=== PATIENT | female | born 1950 | race Caucasian/White ===

== ENCOUNTER 2017-08-30 15:55 | Emergency (ER) | payer BC, OTHER ==
[2017-08-30 16:50] LABS: Absolute Lymphocytes (CBC) 3.1 K/uL (0.7-4.9); Absolute Monocytes 0.5 K/uL (0.1-1.3); Absolute Neutrophil 3.6 K/uL (1.8-8.0); Basophils % 1.7 % (0-1.3); Eosinophils % 1.7 % (0-4.4); Hematocrit 45.2 % (36.0-45.0); Lymphocytes % 41.6 % (15.3-44.8); MCH 29.9 pg (27.0-35.0); MCV 90.9 fL (80-100); MPV 7.8 fL (7.6-11.3); Monocytes % 6.2 % (3.3-12.3); RBC Red Blood Cell Count 4.97 M/uL (3.86-4.86)
[2017-08-30 16:54] LABS: Protime INR 0.99
[2017-08-30 16:54] LABS: Urine Blood NEGATIVE (NEG); Urine Glucose NEGATIVE (NEG); Urine Protein NEGATIVE (NEG); Urine pH 6.5 (5.0-7.0)
--- NOTE | 2017-08-30 17:00 | RAD REPORT ---
EXAM DESCRIPTION: Dylan Single View08/30/2017 4:51 pm CLINICAL HISTORY: Chest pain COMPARISON: 2011 FINDINGS: The lungs appear clear of acute infiltrate. The heart is normal size IMPRESSION: No acute abnormalities displayed
[2017-08-30 17:04] LABS: Potassium 3.9 mEq/L (3.6-5.0)
[2017-08-30 17:10] LABS: Albumin 4.2 g/dL (3.2-5.5); Bilirubin Direct 0.1 mg/dL (0-0.2); Bilirubin Total 0.4 mg/dL (0.3-1.2); Protein, Total 7.3 g/dL (6.0-8.3)
[2017-08-30 17:14] LABS: CKMB Creatine Kinase MB 1.2 ng/ml (0.3-4.0)
[2017-08-30] MEDS ORDERED: ASPIRIN 81 MG CHEWABLE TABLET ONE (17:21)
--- NOTE | 2017-08-30 20:51 | ER ---
Nurse's Notes [facility] Name: Princess Maya Age: 67 yrs Sex: Female : 1950 Arrival Date: 08/30/2017 Time: 15:57 Bed 6 Private MD: Out, [facility] Diagnosis: Chest pain, unspecified Presentation: 08/30 15:57 Presenting complaint: Patient states: continuous right sided chest tightness/heaviness sv with radiation to left jaw and right arm started about 15 minutes ago, SOB, weakness. Denies n/v. 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 Transition of care: patient was not received from another setting of care. Onset of symptoms was August 30, 2017 at 15:45. Care prior to arrival: None. 15:57 Method Of Arrival: Wheelchair sv 15:57 Acuity: JEREMIE 2 sv 16:15 Risk Assessment: Do you want to hurt yourself or someone else? Patient reports no hb desire to harm self or others. Initial Sepsis Screen: Does the patient meet any 2 criteria? No. Patient's initial sepsis screen is negative. Does the patient have a suspected source of infection? No. Patient's initial sepsis screen is negative. Historical: - Allergies: 16:02 PENICILLINS; sv 16:02 Morphine; sv - PMHx: 16:02 None; sv - PSHx: 16:02 Hysterectomy; sv - Immunization history:: Adult Immunizations up to date. - Social history:: Smoking status: Patient/guardian denies using tobacco. - Ebola Screening: : No symptoms or risks identified at this time. Screenin:15 Abuse screen: Denies threats or abuse. Denies injuries from another. Nutritional hb screening: No deficits noted. Tuberculosis screening: No symptoms or risk factors identified. Fall Risk None identified. Assessment: 16:15 General: Appears in no apparent distress. uncomfortable, Behavior is calm, cooperative. hb Pain: Complains of pain in anterior aspect of right upper chest and mid-sternal area Pain radiates to back Pain began suddenly, 4 hours ago. Neuro: Level of Consciousness is awake, alert, obeys commands, Oriented to person, place, time, situation. Cardiovascular: Heart tones S1 S2 present Capillary refill < 3 seconds Patient's skin is warm and dry. Respiratory: Airway is patent Trachea midline Respiratory effort is even, unlabored, Respiratory pattern is regular, symmetrical, Breath sounds are clear bilaterally. GI: No signs and/or symptoms were reported involving the gastrointestinal system. : No signs and/or symptoms were reported regarding the genitourinary system. EENT: No signs and/or symptoms were reported regarding the EENT system. Derm: Skin is intact, is healthy with good turgor, Skin is pink, warm \T\ dry. Musculoskeletal: No signs and/or symptoms reported regarding the musculoskeletal system. 17:00 Reassessment: Patient appears in no apparent distress at this time. No changes from hb previously documented assessment. Patient and/or family updated on plan of care and expected duration. Pain level reassessed. Patient is alert, oriented x 3, equal unlabored respirations, skin warm/dry/pink. 18:00 Reassessment: Patient appears in no apparent distress at this time. Patient and/or hb family updated on plan of care and expected duration. Pain level reassessed. Patient is alert, oriented x 3, equal unlabored respirations, skin warm/dry/pink. Patient denies pain at this time. Patient states feeling better. Patient states symptoms have improved. 19:47 Reassessment: Patient appears in no apparent distress at this time. No changes from ak1 previously documented assessment. Vital Signs: 16:02 Weight 74.84 kg; Height 5 ft. 4 in. (162.56 cm); sv 16:11 BP 126 / 62; Pulse 73; Resp 20; Pulse Ox 99% ; sv 17:00 BP 100 / 45; Pulse 71; Resp 14; Pulse Ox 96% on R/A; Pain 0/10; hb 18:00 BP 93 / 56; Pulse 73; Resp 16; Pulse Ox 100% on R/A; Pain 0/10; hb 19:48 BP 107 / 65; Pulse 68; Resp 18; Pulse Ox 99% on R/A; ak1 16:02 Body Mass Index 28.32 (74.84 kg, 162.56 cm) sv ED Course: 15:56 Patient placed in an exam room. sv 15:57 Patient arrived in ED. sb2 15:58 Out, [facility] is Private Physician. sb2 16:01 Triage completed. sv 16:10 Patient has correct armband on for positive identification. Placed in gown. Bed in low hb position. Call light in reach. Side rails up X 1. monitor and storage bin tender on. Pulse ox on. NIBP on. 16:11 EKG done, by ED staff, reviewed by James Del Rio MD. sv 16:11 Arm band placed on right wrist. sv 16:15 Inserted saline lock: 20 gauge in right antecubital area, using aseptic technique. hb Blood collected. 16:15 Patient maintains SpO2 saturation greater than 95% on room air. hb 16:17 Joaquin Sorensen PA is PHCP. cp 16:17 James Del Rio MD is Attending Physician. cp 16:49 X-ray completed. Portable x-ray completed in exam room. Patient tolerated procedure mh1 well. 16:50 XRAY Chest (1 view) In Process Unspecified. EDMS 17:19 Muriel Gill, RN is Primary Nurse. hb 20:49 Calixto Noel MD is Referral Physician. cp 21:03 No provider procedures requiring assistance completed. IV discontinued, intact, ak1 bleeding controlled, No redness/swelling at site. Pressure dressing applied. Administered Medications: 16:27 CANCELLED (Physician Discretion): Aspirin Chewable Tablet 324 mg PO once; 81 mg tablets cp x 4 17:00 Drug: Aspirin Chewable Tablet 162 mg Route: PO; hb 17:45 Follow up: Response: No adverse reaction hb Outcome: 20:51 Discharge ordered by MD. cp 21:03 Discharged to home ambulatory, with family. ak1 21:03 Condition: good 21:03 Discharge instructions given to patient, family, Instructed on discharge instructions, follow up and referral plans. Demonstrated understanding of instructions, follow-up care. 21:06 Patient left the ED. ak1 Signatures: Dispatcher [employer] EDNC Theresa Koehler, YUAN BOLDEN Yana Salcedo [facility] Sapphire Hernandez RN RN ak1 Joaquin Sorensen PA PA cp Muriel Gill, YUAN BOLDEN Jeannette Christiansen sb2
--- NOTE | 2017-08-30 20:51 | EDPHYS ---
Physician Documentation [facility] Name: Princess Maya Age: 67 yrs Sex: Female : 1950 Arrival Date: 08/30/2017 Time: 15:57 Bed 6 Private MD: Out, [facility] ED Physician James Del Rio HPI: 08/30 16:23 This 67 yrs old Female presents to ER via Wheelchair with complaints of Chest cp Pain. 16:23 The patient or guardian reports chest pain that is located primarily in the anterior cp chest wall, bilaterally. Onset: 2-3 days ago. The pain radiates to both arms, Associated signs and symptoms: Pertinent positives: headache, Pertinent negatives: abdominal pain, cough, lower extremity pain, lower extremity swelling, shortness of breath, syncope, vomiting. The chest pain is described as a heaviness, a pressure. Duration: The patient or guardian reports multiple episodes, that are intermittent, with no pattern. Modifying factors: the symptoms are aggravated by nothing. Severity of pain: in the emergency department the pain has resolved and did so earlier today. Historical: - Allergies: 16:02 PENICILLINS; sv 16:02 Morphine; sv - PMHx: 16:02 None; sv - PSHx: 16:02 Hysterectomy; sv - Immunization history:: Adult Immunizations up to date. - Social history:: Smoking status: Patient/guardian denies using tobacco. - Ebola Screening: : No symptoms or risks identified at this time. ROS: 16:23 Eyes: Negative for injury, pain, redness, and discharge. cp 16:23 Constitutional: Negative for body aches, chills, fever, poor PO intake. 16:23 ENT: Negative for drainage from ear(s), ear pain, sore throat, difficulty swallowing, difficulty handling secretions. 16:23 Cardiovascular: Positive for chest pain, Negative for edema, palpitations. 16:23 Respiratory: Negative for cough, shortness of breath, wheezing. 16:23 Abdomen/GI: Negative for abdominal pain, nausea, vomiting, and diarrhea, black/tarry stool, rectal bleeding. 16:23 Skin: Negative for cellulitis, rash. 16:23 Neuro: Negative for altered mental status, headache, loss of consciousness, syncope, near syncope, weakness. 16:23 All other systems are negative. Exam: 16:12 ECG was reviewed by the Attending Physician. cp 16:30 Constitutional: The patient appears in no acute distress, alert, awake, cp non-diaphoretic, non-toxic, well developed, well nourished. 16:30 Head/Face: Normocephalic, atraumatic. cp 16:30 Eyes: Pupils equal round and reactive to light, extra-ocular motions intact. Lids and lashes normal. Conjunctiva and sclera are non-icteric and not injected. Cornea within normal limits. Periorbital areas with no swelling, redness, or edema. ENT: Nares patent. No nasal discharge, no septal abnormalities noted. Tympanic membranes are normal and external auditory canals are clear. Oropharynx with no redness, swelling, or masses, exudates, or evidence of obstruction, uvula midline. Mucous membranes moist. Neck: Trachea midline, no thyromegaly or masses palpated, and no cervical lymphadenopathy. Supple, full range of motion without nuchal rigidity, or vertebral point tenderness. No Meningismus. Chest/axilla: Normal chest wall appearance and motion. Nontender with no deformity. No lesions are appreciated. 16:30 Cardiovascular: Rate: normal, Rhythm: regular, Pulses: Pulses are 2+ in right radial cp artery and left radial artery. Heart sounds: murmur, not appreciated, rub, not appreciated, gallop, not appreciated, Edema: is not appreciated, JVD: is not appreciated. 16:30 Respiratory: the patient does not display signs of respiratory distress, Respirations: cp normal, no use of accessory muscles, no retractions, no splinting, no tachypnea, labored breathing, is not present, Breath sounds: are clear throughout, no decreased breath sounds, no stridor, no wheezing. 16:30 Abdomen/GI: Inspection: abdomen appears normal, Bowel sounds: active, all quadrants, Palpation: abdomen is soft and non-tender, in all quadrants, rebound tenderness, is not appreciated, voluntary guarding, is not appreciated, involuntary guarding, is not appreciated. 16:30 Back: pain, is absent, ROM is normal. 16:30 Musculoskeletal/extremity: Exam is negative for calf tenderness, decreased range of motion, edema. 16:30 Skin: cellulitis, is not appreciated, no rash present. 16:30 Neuro: Orientation: to person, place \T\ time. Mentation: lucid, able to follow commands, Cerebellar function: is grossly normal, Motor: moves all fours, strength is normal, Sensation: no obvious gross deficits. 20:20 ECG was reviewed by the Attending Physician. Vital Signs: 16:02 Weight 74.84 kg; Height 5 ft. 4 in. (162.56 cm); sv 16:11 BP 126 / 62; Pulse 73; Resp 20; Pulse Ox 99% ; sv 17:00 BP 100 / 45; Pulse 71; Resp 14; Pulse Ox 96% on R/A; Pain 0/10; hb 18:00 BP 93 / 56; Pulse 73; Resp 16; Pulse Ox 100% on R/A; Pain 0/10; hb 19:48 BP 107 / 65; Pulse 68; Resp 18; Pulse Ox 99% on R/A; ak1 16:02 Body Mass Index 28.32 (74.84 kg, 162.56 cm) sv MDM: 16:18 Patient medically screened. cp 16:30 Differential diagnosis: abnormal EKG, acute myocardial infarction, acute pericarditis, cp anxiety, chest wall pain, cholecystitis, Cholelithiasis costochondritis, gastritis, pancreatitis, pericarditis, pneumonia, pneumothorax, pulmonary embolus, stable angina, unstable angina. 17:19 The patient was given aspirin in the Emergency Department. cp 18:10 Data reviewed: vital signs, nurses notes, lab test result(s), EKG, radiologic studies, cp plain films, and as a result, I will repeat troponin and EKG . 18:15 Physician consultation: Sheba Kerns MD was called at 18:05, was contacted at 18:05, regarding admission, to the telemetry unit. patient's condition, wants repeat EKG and troponin level and outpatient f/u if normal. Reports she spoke with DR Noel who will see patient in clinic for f/u tomorrow. 08/30 16:27 Order name: Basic Metabolic Panel 08/30 16:27 Order name: BNP; Complete Time: 18:09 cp 08/30 18:09 Interpretation: Within normal limits: BNP 17. 08/30 16:27 Order name: CBC with Diff; Complete Time: 17:12 08/30 17:12 Interpretation: Normal except: RBC 4.97; HCT 45.2; BASO% 1.7. cp 06/03 16:27 Order name: Ckmb cp 06/03 16:27 Order name: CPK cp 06/03 16:27 Order name: LFT's; Complete Time: 17:17 cp 06/03 17:18 Interpretation: Reviewed. cp 06/03 16:27 Order name: Magnesium; Complete Time: 17:17 cp /03 17:18 Interpretation: Within normal limits: MG 2.0. cp 06/03 16:27 Order name: PT-INR; Complete Time: 17:12 cp /03 18:09 Interpretation: Within normal limits: Reviewed. cp 06/03 16:27 Order name: Ptt, Activated; Complete Time: 17:12 cp /03 18:10 Interpretation: Within normal limits: PTT 25.4. cp /03 16:27 Order name: Troponin (emerg Dept Use Only); Complete Time: 17:12 cp /03 17:13 Interpretation: Within normal limits: TROPED < 0.03. cp /03 16:28 Order name: Basic Metabolic Panel; Complete Time: 17:17 EDMS 03 17:18 Interpretation: Normal except: BUN 25; GFR 71. cp /03 16:28 Order name: CKMB Creatine Kinase MB; Complete Time: 17:17 EDMS /03 18:10 Interpretation: Within normal limits: CKMB 1.2. cp /03 16:28 Order name: Creatine Phosphokinase; Complete Time: 17:17 EDMS /03 18:09 Interpretation: Within normal limits: CPK 55. cp 06/03 16:42 Order name: Urine Dipstick--Ancillary (enter results); Complete Time: 17:12 em1 03 17:13 Interpretation: Normal except: U NIT POSITIVE. cp /03 16:18 Order name: EKG; Complete Time: 16:18 cp /03 16:18 Order name: EKG - Nurse/Tech; Complete Time: 18:13 cp /03 16:27 Order name: XRAY Chest (1 view); Complete Time: 17:12 cp 06/03 17:13 Interpretation: Report review. cp / 16:27 Order name: Cardiac monitoring; Complete Time: 18:13 cp / 16:27 Order name: IV Saline Lock; Complete Time: 18:13 cp 08/30 16:27 Order name: Labs collected and sent; Complete Time: 18:13 cp 06/03 16:27 Order name: O2 Per Protocol; Complete Time: 18:13 cp 06/03 16:27 Order name: O2 Sat Monitoring; Complete Time: 18:13 cp 0603 16:27 Order name: Urine Dipstick-Ancillary (obtain specimen); Complete Time: 16:40 cp / 20:02 Order name: Troponin I; Complete Time: 20:49 cp 08/30 20:49 Interpretation: Reviewed. 08/30 20:02 Order name: EKG; Complete Time: 20:03 cp 08/30 20:02 Order name: EKG - Nurse/Tech; Complete Time: 20:16 cp EC:12 Rate is 68 beats/min. Rhythm is regular. ME interval is normal. QRS interval is normal. cp QT interval is normal. T waves are Normal. No ST changes noted. Interpreted by me. Reviewed by me. 20:20 Rate is 61 beats/min. Rhythm is regular. ME interval is normal. QRS interval is normal. cp QT interval is normal. T waves are Normal. No ST changes noted. Interpreted by me. Reviewed by me. Administered Medications: 16:27 CANCELLED (Physician Discretion): Aspirin Chewable Tablet 324 mg PO once; 81 mg tablets cp x 4 17:00 Drug: Aspirin Chewable Tablet 162 mg Route: PO; hb 17:45 Follow up: Response: No adverse reaction hb Disposition: 08/30/17 20:51 Discharged to Home. Impression: Chest pain, unspecified. - Condition is Stable. - Discharge Instructions: Nonspecific Chest Pain, Aspirin and Your Heart. - Medication Reconciliation Form, Thank You Letter, Antibiotic Education, Prescription Opioid Use form. - Follow up: Calixto Noel MD; When: Tomorrow; Reason: Recheck today's complaints. - Problem is new. - Symptoms are resolved. Addendum: 09/03/2017 12:17 Co-signature as Attending Physician, James Del Rio MD. g s Signatures: Dispatcher [employer] Theresa Wilson RN RN Sapphire Hernandez RN RN ak1 Joaquin Sorensen PA PA Muriel Hernandez RN RN James Del Rio MD MD Corrections: (The following items were deleted from the chart) 08/30 16:27 16:27 Aspirin Chewable Tablet 324 mg PO once; 81 mg tablets x 4 ordered. cp cp 21:06 20:51 08/30/2017 20:51 Discharged to Home. Impression: Chest pain, unspecified. ak1 Condition is Stable. Forms are Medication Reconciliation Form, Thank You Letter, Antibiotic Education, Prescription Opioid Use. Follow up: Calixto Noel; When: Tomorrow; Reason: Recheck today's complaints. Problem is new. Symptoms are resolved. cp
--- NOTE | 2017-08-31 07:37 | EKG ---
Test Date: 2017-08-30 Test Time: 16:08:16 Oleo Hasher And Renderer: MEASUREMENT RESULTS: Intervals: Rate: 68 OH: 144 QRSD: 76 QT: 392 QTc: 416 [place]: P: 29 OH: 144 QRS: 25 T: 46 INTERPRETIVE STATEMENTS: Normal sinus rhythm Normal ECG Compared to ECG 04/16/2011 04:36:36 No significant changes Electronically Signed On 08-31-17 07:36:42 CDT by Umesh Burrell
--- NOTE | 2017-08-31 07:37 | EKG ---
Test Date: 2017-08-30 Test Time: 20:13:05 Claims Analyst: RISSA MEASUREMENT RESULTS: Intervals: Rate: 61 AK: 146 QRSD: 82 QT: 422 QTc: 424 [place]: P: 13 AK: 146 QRS: 1 T: 22 INTERPRETIVE STATEMENTS: Normal sinus rhythm Normal ECG Compared to ECG 08/30/2017 16:08:16 No significant changes Electronically Signed On 08-31-17 07:36:24 CDT by Umesh Burrell
== END 2017-08-30 21:06 | disposition home or self-care (01) ==
LOC: ER 15:55
DX: R07.9 Chest pain, unspecified (principal); Z88.0 Allergy status to penicillin; Z88.5 Allergy status to narcotic agent
CPT/HCPCS: 36415; 71045; 80048; 80076; 81003; 82550; 82553; 83735; 83880; 84484; 85025; 85610; 85730; 93005; 99285

== ENCOUNTER 2018-04-01 04:29 | Emergency (ER) | payer OTHER ==
--- NOTE | 2018-04-01 05:43 | ER ---
Nurse's Notes [facility] Name: Princess Maya Age: 67 yrs Sex: Female : 1950 Arrival Date: 04/01/2018 Time: 04:33 Bed 13 Private MD: Diagnosis: Influenza due to identified novel influenza A virus Presentation: 04/01 04:38 Presenting complaint: Patient states: Has been having flu-like symptoms x 5 days, lp1 cough, congestion, fatigue; States diagnosed with flu 3x this season. Transition of care: patient was not received from another setting of care. Onset of symptoms was April 01, 2018. Risk Assessment: Do you want to hurt yourself or someone else? Patient reports no desire to harm self or others. Initial Sepsis Screen: Does the patient meet any 2 criteria? No. Patient's initial sepsis screen is negative. Does the patient have a suspected source of infection? No. Patient's initial sepsis screen is negative. Care prior to arrival: None. 04:38 Method Of Arrival: Ambulatory lp1 04:38 Acuity: JEREMIE 4 lp1 Historical: - Allergies: 04:40 Morphine; lp1 04:40 PENICILLINS; lp1 - Home Meds: 04:40 None [Active]; lp1 - PMHx: 04:40 None; lp1 - PSHx: 04:40 Hysterectomy; lp1 - Immunization history:: Adult Immunizations up to date, Flu vaccine is not up to date. - Social history:: Smoking status: Patient/guardian denies using tobacco. - Ebola Screening: : No symptoms or risks identified at this time. Screenin:47 Abuse screen: Denies threats or abuse. Denies injuries from another. Nutritional lp1 screening: No deficits noted. Tuberculosis screening: No symptoms or risk factors identified. Fall Risk None identified. Assessment: 04:46 General: Appears in no apparent distress. Behavior is calm, cooperative, appropriate lp1 for age, Reports chills for feeling ill for fatigue for. Pain: Denies pain. Neuro: Level of Consciousness is awake, alert, obeys commands. Cardiovascular: Patient's skin is warm and dry. Respiratory: Reports cough that is Respiratory effort is even, Breath sounds are clear bilaterally. GI: No deficits noted. : No deficits noted. EENT: No deficits noted. Derm: Skin is intact, Skin is dry, Skin is pale. Musculoskeletal: Circulation, motion, and sensation intact. Vital Signs: 04:45 BP 130 / 58; Pulse 67; Resp 18; Temp 99.2; Pulse Ox 96% on R/A; Weight 72.57 kg; Height lp1 5 ft. 4 in. (162.56 cm); 04:45 Body Mass Index 27.46 (72.57 kg, 162.56 cm) lp1 ED Course: 04:33 Patient arrived in ED. es 04:34 Obey Lima MD is Attending Physician. tw4 04:34 Ronda Estrada, YUAN is Primary Nurse. lp1 04:39 Triage completed. lp1 04:40 Arm band placed on right wrist. lp1 04:47 Patient has correct armband on for positive identification. lp1 04:58 Patient moved to radiology via wheelchair. kw 04:58 X-ray completed. Patient tolerated procedure well. kw 04:58 Patient moved back from radiology. kw 04:59 Chest Pa And Lat (2 Views) XRAY In Process Unspecified. EDMS 05:13 Flu Sent. ds4 05:53 No provider procedures requiring assistance completed. Patient did not have IV access lp1 during this emergency room visit. Administered Medications: 05:53 Drug: Tamiflu 75 mg Route: PO; lp1 05:53 Follow up: Response: Medication administered at discharge. lp1 Outcome: 05:42 Discharge ordered by . tw4 05:53 Discharged to home ambulatory. lp1 05:53 Condition: good 05:53 Discharge instructions given to patient, Instructed on discharge instructions, follow up and referral plans. medication usage, Demonstrated understanding of instructions, follow-up care, medications, Prescriptions given X 1. 05:54 Patient left the ED. lp1 Signatures: Dispatcher [employer] EDMS Mandi Hernandez Kimberlee kw Ronda Estrada, YUAN RN lp1 Magdiel Walsh ds4 Obey Lima MD MD tw4 Corrections: (The following items were deleted from the chart) 04:46 04:38 Presenting complaint: Patient states: Has been having flu-like symptoms x 2 lp1 weeks, cough, congestion, fatigue; States diagnosed with flu 3x this season lp1
--- NOTE | 2018-04-01 05:54 | EDPHYS ---
Physician Documentation [facility] Name: Princess Maya Age: 67 yrs Sex: Female : 1950 Arrival Date: 04/01/2018 Time: 04:33 Bed 13 Private MD: ED Physician Obey Lima HPI: 04/01 05:47 This 67 yrs old Female presents to ER via Ambulatory with complaints of Flu tw4 Symptoms. 05:47 The patient or guardian reports cough. Onset: The symptoms/episode began/occurred 2 tw4 day(s) ago. Modifying factors: The symptoms are alleviated by nothing. the symptoms are aggravated by nothing. Associated signs and symptoms: The patient has no apparent associated signs or symptoms. Severity of symptoms: At their worst the symptoms were moderate in the emergency department the symptoms are unchanged. The patient has not experienced similar symptoms in the past. Historical: - Allergies: 04:40 Morphine; lp1 04:40 PENICILLINS; lp1 - Home Meds: 04:40 None [Active]; lp1 - PMHx: 04:40 None; lp1 - PSHx: 04:40 Hysterectomy; lp1 - Immunization history:: Adult Immunizations up to date, Flu vaccine is not up to date. - Social history:: Smoking status: Patient/guardian denies using tobacco. - Ebola Screening: : No symptoms or risks identified at this time. ROS: 05:47 Constitutional: Negative for fever, chills, and weight loss, Eyes: Negative for injury, tw4 pain, redness, and discharge, Cardiovascular: Negative for chest pain, palpitations, and edema, Respiratory: Negative for shortness of breath, cough, wheezing, and pleuritic chest pain, Abdomen/GI: Negative for abdominal pain, nausea, vomiting, diarrhea, and constipation, Back: Negative for injury and pain, MS/Extremity: Negative for injury and deformity, Skin: Negative for injury, rash, and discoloration. Exam: 05:47 Constitutional: This is a well developed, well nourished patient who is awake, alert, tw4 and in no acute distress. Head/Face: Normocephalic, atraumatic. Chest/axilla: Normal chest wall appearance and motion. Nontender with no deformity. No lesions are appreciated. Cardiovascular: Regular rate and rhythm with a normal S1 and S2. No gallops, murmurs, or rubs. Normal PMI, no JVD. No pulse deficits. Respiratory: Lungs have equal breath sounds bilaterally, clear to auscultation and percussion. No rales, rhonchi or wheezes noted. No increased work of breathing, no retractions or nasal flaring. Abdomen/GI: Soft, non-tender, with normal bowel sounds. No distension or tympany. No guarding or rebound. No evidence of tenderness throughout. Back: No spinal tenderness. No costovertebral tenderness. Full range of motion. MS/ Extremity: Pulses equal, no cyanosis. Neurovascular intact. Full, normal range of motion. Neuro: Awake and alert, GCS 15, oriented to person, place, time, and situation. Cranial nerves II-XII grossly intact. Motor strength 5/5 in all extremities. Sensory grossly intact. Cerebellar exam normal. Normal gait. Vital Signs: 04:45 BP 130 / 58; Pulse 67; Resp 18; Temp 99.2; Pulse Ox 96% on R/A; Weight 72.57 kg; Height lp1 5 ft. 4 in. (162.56 cm); 04:45 Body Mass Index 27.46 (72.57 kg, 162.56 cm) lp1 MDM: 04:35 Patient medically screened. tw4 05:47 Differential diagnosis: flu, URI. Antibiotic administration: Not indicated. Data tw4 reviewed: vital signs, nurses notes. Data interpreted: Pulse oximetry: Interpretation: normal. Counseling: I had a detailed discussion with the patient and/or guardian regarding: the historical points, exam findings, and any diagnostic results supporting the discharge/admit diagnosis, lab results. Special discussion: I discussed with the patient/guardian in detail that at this point there is no indication for admission to the hospital. It is understood, however, that if the symptoms persist or worsen the patient needs to return immediately for re-evaluation. 04/01 04:35 Order name: Flu tw4 04/01 04:35 Order name: Chest Pa And Lat (2 Views) XRAY tw4 Administered Medications: 05:53 Drug: Tamiflu 75 mg Route: PO; lp1 05:53 Follow up: Response: Medication administered at discharge. lp1 Disposition: 06:40 Chart complete. tw4 Disposition: 04/01/18 05:42 Discharged to Home. Impression: Influenza due to identified novel influenza A virus. - Condition is Stable. - Discharge Instructions: Influenza, Adult. - Prescriptions for Tamiflu 75 mg Oral Capsule - take 1 capsule by ORAL route every 12 hours for 5 days; 10 capsule. - Medication Reconciliation Form, Thank You Letter, Antibiotic Education, Prescription Opioid Use form. - Follow up: Private Physician; When: Upon discharge from the Emergency Department; Reason: If symptoms return, Recheck today's complaints, Continuance of care. - Problem is new. - Symptoms have improved. Signatures: Dispatcher [employer] EDRonda Florian RN RN lp1 Obey Lima MD MD tw4 Corrections: (The following items were deleted from the chart) 05:54 05:42 04/01/2018 05:42 Discharged to Home. Impression: Influenza due to identified lp1 novel influenza A virus. Condition is Stable. Forms are Medication Reconciliation Form, Thank You Letter, Antibiotic Education, Prescription Opioid Use. Follow up: Private Physician; When: Upon discharge from the Emergency Department; Reason: If symptoms return, Recheck today's complaints, Continuance of care. Problem is new. Symptoms have improved. tw4
[2018-04-01] MEDS ORDERED: OSELTAMIVIR 75 MG CAP ONE (05:59)
--- NOTE | 2018-04-01 09:29 | RAD REPORT ---
EXAM DESCRIPTION: RAD - Chest Pa And Lat (2 Views) - 04/01/2018 5:01 am CLINICAL HISTORY: Cough, dyspnea, flu-like symptoms COMPARISON: August 2017 TECHNIQUE: PA and lateral views of the chest were obtained. FINDINGS: The lungs are mildly fibrotic as a baseline. There is no large mass or consolidations seen . No peribronchial thickening identifiable. There is a trace amount of lung parenchymal opacification in the lateral left base in in the right base abutting the diaphragmatic eventration. On the lateral view there is questionable minimal infiltrate or atelectasis in the inferior aspect of the right upp er lobe along the minor fissure. Heart size is normal and central vasculature is within normal limits. No pleural effusion or pneumot horax seen. No acute bony finding noted. No aortic abnormality. IMPRESSION: Minimal areas of parenchymal opacification in the inferior aspect right upper lobe and i n each lung base. Findings are minimal but could indicate small areas of pneumonia.
== END 2018-04-01 05:54 | disposition home or self-care (01) ==
LOC: ER 04:29
DX: J10.1 Influenza due to other identified influenza virus with other respiratory manifestations (principal); Z88.0 Allergy status to penicillin; Z88.5 Allergy status to narcotic agent
CPT/HCPCS: 71046; 87804; 99284

== ENCOUNTER 2024-05-03 02:53 | Emergency (ER) | payer OTHER ==
[2024-05-03 03:59] LABS: Absolute Eosinophils 0.2 K/uL (0-0.5); Absolute Lymphocytes (CBC) 3.1 K/uL (0.7-4.9); Absolute Neutrophil 6.1 K/uL (1.8-8.0); Basophils % 0.5 % (0-1.3); Eosinophils % 2.1 % (0-4.4); Hematocrit 40.4 % (36.0-45.0); Hemoglobin 13.8 g/dL (12.0-15.0); Lymphocytes % 29.7 % (15.3-44.8); MCH 29.9 pg (27.0-35.0); MCHC 34.3 g/dL (32.0-36.0); MCV 87.2 fL (80-100); MPV 7.3 fL (7.6-11.3); Monocytes % 9.6 % (3.3-12.3); Neutrophils % 58.1 % (41.7-73.7); Nucleated Red Blood Cells % 0.1 % (0-0); Platelets 346 thou/uL (152-406); RBC Red Blood Cell Count 4.63 M/uL (3.86-4.86); Red Cell Distribution Width 14.1 % (12.1-15.2)
[2024-05-03 04:00] LABS: PT Prothrombin Time 10.8 SECONDS (9.4-12.5); Protime INR 1.03
[2024-05-03 04:11] LABS: ALT/SGPT 19 U/L (13-56); AST/SGOT 11 U/L (15-37); Albumin 3.3 g/dL (3.4-5.0); Albumin/Globulin Ratio 0.9 (1.1-1.8); Alkaline Phosphatase 102 U/L (45-117); Anion Gap 7.9 mEq/L (5.0-15.0); BUN Blood Urea Nitrogen 17 mg/dL (7-18); Bicarbonate 27 mEq/L (21-32); Bilirubin Total 0.3 mg/dL (0.2-1.0); Globulin 3.8 g/dL (2.3-3.5); Glomerular Filtration Rate 95 ml/min (=/>90); Glucose Level 93 mg/dL (74-106); Magnesium 2.3 mg/dL (1.6-2.4); NT PRO-BNP 38 pg/mL (<125); Potassium 3.9 mEq/L (3.5-5.1); Protein, Total 7.1 g/dL (6.4-8.2); Sodium Level 138 mEq/L (136-145); Troponin High Sensitivity 3.9 pg/mL (<58.9)
[2024-05-03 04:13] LABS: Bilirubin Direct < 0.2 mg/dL (0-0.2); Bilirubin Indirect, Calculated 0.1 mg/dL (0.2-0.8)
[2024-05-03] MEDS ORDERED: NA CHLORIDE 0.9% 1,000 ML ONE (04:58)
[2024-05-03] MEDS ORDERED: methocarbamoL 750 MG TAB ONE (04:58)
--- NOTE | 2024-05-03 06:52 | RAD REPORT ---
EXAM: XR Chest, 1 View CLINICAL HISTORY: The patient is 73 years old and is Female; chest pain TECHNIQUE: Frontal view of the chest. COMPARISON: No relevant prior studies available. FINDINGS: Lungs: Unremarkable. No consolidation. Pleural space: Unremarkable. No pneumothorax. Heart: Unremarkable. Mediastinum: Unremarkable. Normal mediastinal contour. Bones/joints: No acute findings. * A single impression for all exams can be found at the end of this report IMPRESSION: CT Angiography Chest, Abdomen and Pelvis With Intravenous Contrast: No acute findings in the visualized arteries of the chest, abdomen or pelvis. XR Chest, 1 View: No acute findings in the chest. Electronically signed by: Marko Gandhi MD 05/03/2024 06:48 AM [facility] 8 Due to temporary technical issues with the [employer] [facility] reporting system, reports are being mata d by the in-house radiologist without review as a courtesy to ensure prompt reporting the interpreting radiologist is fully responsible for the content of the report. Transcribed Date/Time: 05/03/2024 6:52 AM
--- NOTE | 2024-05-03 06:52 | RAD REPORT ---
EXAM: CT Angiography Chest, Abdomen and Pelvis With Intravenous Contrast CLINICAL HISTORY: The patient is 73 years old and is Female; chest pain TECHNIQUE: Axial computed tomographic angiography images of the chest, abdomen and pelvis with intr avenous contrast. Sagittal and coronal reformatted images were created and reviewed. This CT exam was performed using one or more of the following dose reduction techniques: automated exposure control, adjustment of the mA and/or kV according to patient size, and/or use of iterative reconstruction technique. MIP reconstructed images were created and reviewed. COMPARISON: No relevant prior studies available. FINDINGS: VASCULATURE: Aorta: No acute findings. No aortic aneurysm. No dissection. Pulmonary arteries: Unremarkable as visualized. No pulmonary embolism is identified. Great vessels of aortic arch: No acute findings. No dissection. No arterial occlusion or sign ificant stenosis. Celiac trunk and mesenteric arteries: No acute findings. No occlusion or significant stenosis. Renal arteries: No acute findings. No occlusion or significant stenosis. Iliac arteries: No acute findings. No occlusion or significant stenosis. CHEST: Lungs: Unremarkable. No mass. No consolidation. Pleural space: Unremarkable. No significant effusion. No pneumothorax. Heart: Unremarkable. No cardiomegaly. No significant pericardial effusion. Thyroid: 1.5 cm hypoattenuating lesion in the right thyroid Scattered atherosclerotic vascular ca lcifications. ABDOMEN: Liver: Unremarkable. No mass. Gallbladder and bile ducts: Unremarkable. No calcified stones. No ductal dilation. Pancreas: Unremarkable. No ductal dilation. No mass. Spleen: Unremarkable. No splenomegaly. Adrenals: Unremarkable. No mass. Kidneys and ureters: Unremarkable. No hydronephrosis. No solid mass. Stomach and bowel: Scattered colonic diverticula. No obstruction. No mucosal thickening. PELVIS: Appendix: No findings to suggest acute appendicitis. Bladder: Unremarkable. No mass. Reproductive: Unremarkable as visualized. CHEST, ABDOMEN and PELVIS: Intraperitoneal space: Unremarkable. No significant fluid collection. No free air. Bones/joints: No acute fracture. No dislocation. Soft tissues: Unremarkable. Lymph nodes: Unremarkable. No enlarged lymph nodes. * A single impression for all exams can be found at the end of this report EXAM: XR Chest, 1 View CLINICAL HISTORY: The patient is 73 years old and is Female; chest pain TECHNIQUE: Frontal view of the chest. COMPARISON: No relevant prior studies available. FINDINGS: Lungs: Unremarkable. No consolidation. Pleural space: Unremarkable. No pneumothorax. Heart: Unremarkable. Mediastinum: Unremarkable. Normal mediastinal contour. Bones/joints: No acute findings. * A single impression for all exams can be found at the end of this report IMPRESSION: CT Angiography Chest, Abdomen and Pelvis With Intravenous Contrast: No acute findings in the visualized arteries of the chest, abdomen or pelvis. XR Chest, 1 View: No acute findings in the chest. Electronically signed by: Marko Gandhi MD 05/03/2024 06:48 AM [facility] 8 Due to temporary technical issues with the [employer] [facility] reporting system, reports are being mata d by the in-house radiologist without review as a courtesy to ensure prompt reporting the interpreting radiologist is fully responsible for the content of the report. Transcribed Date/Time: 05/03/2024 6:52 AM
--- NOTE | 2024-05-03 07:23 | ER ---
Nurse's Notes [facility] Name: Princess Maya Age: 73 yrs Sex: Female : 1950 Arrival Date: 05/03/2024 Time: 02:53 Bed 19 Private MD: Diagnosis: Left pectoral girdle pain, acute musculoskeletal pain, nonspecific chest pain Presentation: 05/03 03:13 Chief complaint: Patient states: LEFT ARM NUMBNESS, CHEST PAIN, DIZZY, BLURRED VISION, ha1 AND NECK AND JAW PAIN. 03:13 Coronavirus screen: Client denies travel out of the [place] in the last 14 days. Ebola ha1 Screen: No symptoms or risks identified at this time. Acute neurological deficit: none identified. Initial Sepsis Screen: Does the patient meet any 2 criteria? No. Patient's initial sepsis screen is negative. Does the patient have a suspected source of infection? No. Patient's initial sepsis screen is negative. Risk Assessment: Do you want to hurt yourself or someone else? Patient reports no desire to harm self or others. Onset of symptoms was May 03, 2024. 03:13 Method Of Arrival: Ambulatory ha1 03:13 Acuity: JEREMIE 2 ha1 Triage Assessment: 03:13 General: Appears comfortable, Behavior is calm, cooperative. Pain: Complains of pain in ha1 chest and neck Pain currently is 8 out of 10 on a pain scale. Quality of pain is described as aching. Neuro: Level of Consciousness is awake, alert, obeys commands, Oriented to person, place, time, situation. Cardiovascular: Capillary refill < 3 seconds Patient's skin is warm and dry. Cardiovascular: Reports chest pain, Heart tones S1 S2 present Rhythm is sinus rhythm. Respiratory: Airway is patent Respiratory effort is even, unlabored, Respiratory pattern is regular, symmetrical. GI: Abdomen is round non-distended. : No signs and/or symptoms were reported regarding the genitourinary system. Derm: Skin is pink, warm \T\ dry. Musculoskeletal: Circulation, motion, and sensation intact. Historical: - Allergies: 03:13 PENICILLINS; ha1 03:13 Morphine; ha1 - PMHx: 03:13 None; ha1 - PSHx: 03:13 HYSTORECTOMY; RIGHT SHOULDER; ha1 - Immunization history:: Adult Immunizations up to date. - Infectious Disease History:: Denies. - Social history:: Smoking status: Patient denies any tobacco usage or history of. - Family history:: not pertinent. Screenin:30 [facility] ED Fall Risk Assessment (Adult) History of falling in the last 3 months, ha1 including since admission No falls in past 3 months (0 pts) Confusion or Disorientation No (0 pts) Intoxicated or Sedated No (0 pts) Impaired Gait No (0 pts) Mobility Assist Device Used No (0 pt) Altered Elimination No (0 pt) Score/Fall Risk Level 0 - 2 = Low Risk Oriented to surroundings, Maintained a safe environment, Educated pt \T\ family on fall prevention, incl call for assistance when getting out of bed, Hourly rounding (assess needs \T\ fall precautionary measures) done. Abuse screen: Denies threats or abuse. Denies injuries from another. Nutritional screening: No deficits noted. Tuberculosis screening: No symptoms or risk factors identified. Assessment: 03:13 Reassessment: see triage assessment. ha1 04:20 Reassessment: Patient and/or family updated on plan of care and expected duration. Pain ha1 level reassessed. Patient is alert, oriented x 3, equal unlabored respirations, skin warm/dry/pink. 04:20 Neuro: Level of Consciousness is awake, alert, obeys commands, Oriented to person, ha1 place, time, situation. Vital Signs: 03:13 BP 126 / 71; Pulse 86; Resp 19 S; Temp 98.1(O); Pulse Ox 97% on R/A; Weight 67.59 kg; ha1 Height 5 ft. 3 in. ; 04:20 BP 130 / 71; Pulse 86; Resp 18 S; Pulse Ox 97% on R/A; ha1 03:13 Body Mass Index 26.39 (67.59 kg, 160.02 cm) ha1 David Coma Score: 05/04 02:19 Eye Response: spontaneous(4). Motor Response: obeys commands(6). Verbal Response: sp4 oriented(5). Total: 15. ED Course: 05/03 02:55 Patient arrived in ED. [id number] 03:14 Carl Fernandez, RN is Primary Nurse. rg5 03:20 EKG done, by ED staff. oe 03:25 Shaheen Agustin MD is Attending Physician. sp4 03:26 Triage completed. ha1 03:34 Inserted saline lock: 20 gauge in right antecubital area, using aseptic technique. oe Blood collected. Flushed with 10 mL NS. 03:35 Basic Metabolic Panel Sent. oe 03:35 CBC with Diff Sent. oe 03:35 LFT's Sent. oe 03:35 Magnesium Sent. oe 03:35 NT PRO-BNP Sent. oe 03:35 PT-INR Sent. oe 03:35 Troponin HS Sent. oe 04:09 XRAY Chest (1 view) In Process Unspecified. EDMS 05:16 CT Aorta for Dissection In Process Unspecified. EDMS 07:20 Primary Nurse role handed off by Carl Fernandez RN bd 07:21 Kb Nicole MD is Referral Physician. sp4 07:34 No provider procedures requiring assistance completed. IV discontinued, intact, ko1 bleeding controlled, No redness/swelling at site. Pressure dressing applied. 07:34 Patient has correct armband on for positive identification. Bed in low position. Call ko1 light in reach. Provided Education on: discharge. Administered Medications: 05:03 Drug: NS 0.9% IV 1000 ml IV at 1000 ml once; to be given as a bolus over 60 minutes ha1 Route: IV; Rate: 1000 ml; Site: left wrist; 05:03 Drug: Methocarbamol PO 1500 mg PO once Route: PO; ha1 Medication: 07:34 VIS not applicable for this client. ko1 Outcome: 07:22 Discharge ordered by . sp4 07:34 Discharged to home ambulatory, ko1 07:34 Condition: stable 07:34 Discharge instructions given to patient, family, Instructed on discharge instructions, follow up and referral plans. medication usage, Demonstrated understanding of instructions, follow-up care, medications, Prescriptions given X 2, 07:39 Patient left the ED. ko1 Signatures: Dispatcher [employer] EDMS Tracie Causey [place] oe Doris [email or web address] Jess Stewart, RN RN ha1 Beata Mcdonald RN RN ko1 Shaheen Agustin MD MD sp4 Carl Fernandez RN RN rg5
--- NOTE | 2024-05-03 07:23 | EDPHYS ---
Physician Documentation [facility] Name: Princess Maya Age: 73 yrs Sex: Female : 1950 Arrival Date: 05/03/2024 Time: 02:53 Bed 19 Private MD: ED Physician Shaheen Agustin HPI: 05/03 06:48 This 73 yrs old Female presents to ER via Ambulatory with complaints of Neck sp4 and Upper Back Pain, Jaw Pain, Chest Pain, Arm Pain, LEFT SIDE PAIN, Blurred Vision. 06:48 Patient is a very pleasant female who presents with complaint of 4 days of left sp4 posterior scapular to back pain associated with left chest pain associated with pain radiation down the left arm associated with neck pain. . Historical: - Allergies: 03:13 PENICILLINS; ha1 03:13 Morphine; ha1 - PMHx: 03:13 None; ha1 - PSHx: 03:13 HYSTORECTOMY; RIGHT SHOULDER; ha1 - Immunization history:: Adult Immunizations up to date. - Infectious Disease History:: Denies. - Social history:: Smoking status: Patient denies any tobacco usage or history of. - Family history:: not pertinent. ROS: 06:48 Constitutional: Negative for fever, chills, and weight loss, positive back pain sp4 positive neck pain positive left arm pain positive left-sided chest pain 06:48 All other systems are negative, Exam: 06:48 Constitutional: This is a well developed, well nourished patient who is awake, alert, sp4 and in no acute distress. Head/Face: Normocephalic, atraumatic. Eyes: Pupils equal round and reactive to light, extra-ocular motions intact. Lids and lashes normal. Conjunctiva and sclera are not injected. Cornea within normal limits. Periorbital areas with no swelling, redness, or edema. ENT: Nares patent. No nasal discharge, no septal abnormalities noted. Tympanic membranes are normal and external auditory canals are clear. Oropharynx with no redness, swelling, or masses, exudates, or evidence of obstruction, uvula midline. Mucous membranes moist. Neck: Trachea midline, no thyromegaly or masses palpated, and no cervical lymphadenopathy. Supple, full range of motion without nuchal rigidity, or vertebral point tenderness. Chest/axilla: Normal chest wall appearance and motion. Nontender with no deformity. No lesions are appreciated. Cardiovascular: Regular rate and rhythm with a normal S1 and S2. No gallops, murmurs, or rubs. Normal PMI, no JVD. No pulse deficits. Respiratory: Lungs have equal breath sounds bilaterally, clear to auscultation and percussion. No rales, rhonchi or wheezes noted. No increased work of breathing, no retractions or nasal flaring. Abdomen/GI: Soft, with normal bowel sounds. No distension or tympany. No guarding or rebound. No evidence of tenderness throughout. Back: No spinal tenderness. No costovertebral tenderness. Skin: Warm, dry with normal turgor. Normal color with no rashes, no lesions, and no evidence of cellulitis. MS/ Extremity: Pulses equal, no cyanosis. Neurovascular intact. Full, normal range of motion. Neuro: Awake and alert, GCS 15, oriented to person, place, time, and situation. Cranial nerves II-XII grossly intact. Motor strength 5/5 in all extremities. Sensory grossly intact. Psych: Awake, alert, with orientation to person, place and time. Behavior, mood, and affect are within normal limits 06:48 ECG was reviewed by the Attending Physician. EKG at 0 317 sinus rhythm with right bundle branch block rate 87 PVCs Vital Signs: 03:13 BP 126 / 71; Pulse 86; Resp 19 S; Temp 98.1(O); Pulse Ox 97% on R/A; Weight 67.59 kg; ha1 Height 5 ft. 3 in. ; 04:20 BP 130 / 71; Pulse 86; Resp 18 S; Pulse Ox 97% on R/A; ha1 03:13 Body Mass Index 26.39 (67.59 kg, 160.02 cm) ha1 David Coma Score: 05/04 02:19 Eye Response: spontaneous(4). Motor Response: obeys commands(6). Verbal Response: sp4 oriented(5). Total: 15. MDM: 05/03 03:25 Medical Screening Exam initiated sp4 06:55 ED course: IMPRESSION: CTAngiography Chest, Abdomen and Pelvis With Intravenous sp4 Contrast: No acute findings in the visualized arteries of the chest, abdomen or pelvis. XR Chest, 1 View: No acute findings in the chest. . ED course: EXAM: CTAngiography Chest, Abdomen and Pelvis With Intravenous Contrast CLINICAL HISTORY: The patient is 73 years old and is Female; chest pain TECHNIQUE: Axial computed tomographic angiography images of the chest, abdomen and pelvis with intravenous contrast. Sagittal and coronal reformatted images were created and reviewed. This CT exam was performed using one or more of the following dose reduction techniques: automated exposure control, adjustment of the mA and/or kV according to patient size, and/or use of iterative reconstruction technique. MIP reconstructed images were created and reviewed. COMPARISON: No relevant prior studies available. FINDINGS: VASCULATURE: Aorta: No acute findings. No aortic aneurysm. No dissection. Pulmonary arteries: Unremarkable as visualized. No pulmonary embolism is identified. Great vessels of aortic arch: No acute findings. No dissection. No arterial occlusion or significant stenosis. Celiac trunk and mesenteric arteries: No acute findings. No occlusion or significant stenosis. Renal arteries: No acute findings. No occlusion or significant stenosis. Iliac arteries: No acute findings. No occlusion or significant stenosis. CHEST: Lungs: Unremarkable. No mass. No consolidation. Pleural space: Unremarkable. No significant effusion. No pneumothorax. Heart: Unremarkable. No cardiomegaly. No significant pericardial effusion. Thyroid: 1.5 cm hypoattenuating lesion in the right thyroid Scattered atherosclerotic vascular calcifications. ABDOMEN: Liver: Unremarkable. No mass. Gallbladder and bile ducts: Unremarkable. No calcified stones. No ductal dilation. Pancreas: Unremarkable. No ductal dilation. No mass. Spleen: Unremarkable. No splenomegaly. Adrenals: Unremarkable. No mass. Kidneys and ureters: Unremarkable. No hydronephrosis. No solid mass. Stomach and bowel: Scattered colonic diverticula. No obstruction. No mucosal thickening. PELVIS: Appendix: No findings to suggest acute appendicitis. Bladder: Unremarkable. No mass. Reproductive: Unremarkable as visualized. CHEST, ABDOMEN and PELVIS: Intraperitoneal space: Unremarkable. No significant fluid collection. No free air. Bones/joints: No acute fracture. No dislocation. Soft tissues: Unremarkable. Lymph nodes: Unremarkable. No enlarged lymph nodes. * A single impression for all exams can be found at the end of this report EXAM: XR Chest, 1 View CLINICAL HISTORY: The patient is 73 years old and is Female; chest pain TECHNIQUE: Frontal view of the chest. COMPARISON: No relevant prior studies available. FINDINGS: Lungs: Unremarkable. No consolidation. Pleural space: Unremarkable. No pneumothorax. Heart: Unremarkable. Mediastinum: Unremarkable. Normal mediastinal contour. Bones/joints: No acute findings. * A single impression for all exams can be found at the end of this report . 05/04 02:19 Differential diagnosis: arthritis, cervical strain, Degenerative Disc Disease fracture. sp4 Data reviewed: vital signs, nurses notes, lab test result(s), EKG, radiologic studies, CT scan, plain films. Consideration of Admission/Observation Escalation of care including admission/observation considered. 05/03 03:25 Order name: Basic Metabolic Panel; Complete Time: 04:28 sp4 05/03 03:25 Order name: CBC with Diff; Complete Time: 04:28 sp4 05/03 03:25 Order name: LFT's; Complete Time: 04:28 sp4 05/03 03:25 Order name: Magnesium; Complete Time: 04:28 sp4 05/03 03:25 Order name: NT PRO-BNP; Complete Time: 04:28 sp4 05/03 03:25 Order name: PT-INR; Complete Time: 04:28 sp4 05/03 03:25 Order name: Troponin HS; Complete Time: 04:28 sp4 05/03 04:43 Order name: Troponin High Sensitivity; Complete Time: 06:56 sp4 05/03 03:25 Order name: XRAY Chest (1 view); Complete Time: 06:56 sp4 05/03 04:43 Order name: CT Aorta for Dissection; Complete Time: 06:56 sp4 05/03 03:25 Order name: Cardiac monitoring; Complete Time: 03:35 sp4 05/03 03:25 Order name: EKG - Nurse/Tech; Complete Time: 03:35 sp4 05/03 03:25 Order name: IV Saline Lock; Complete Time: 03:35 sp4 05/03 03:25 Order name: Labs collected and sent; Complete Time: 03:35 sp4 05/03 03:25 Order name: O2 Per Protocol; Complete Time: 03:45 sp4 05/03 03:25 Order name: O2 Sat Monitoring; Complete Time: 03:35 sp4 EC/04 03:17 Rate is 87 beats/min. Rhythm is irregular, Normal Sinus Rhythm with Occasional PVCs. sp4 QRS [place] is Normal. PA interval is normal. QRS interval is prolonged. QT interval is normal. No Q waves. T waves are Normal. No ST changes noted. Clinical impression: No evidence of ischemia. Interpreted by me. Reviewed by me. Administered Medications: 05:03 Drug: NS 0.9% IV 1000 ml IV at 1000 ml once; to be given as a bolus over 60 minutes ha1 Route: IV; Rate: 1000 ml; Site: left wrist; 05:03 Drug: Methocarbamol PO 1500 mg PO once Route: PO; ha1 Disposition Summary: 05/03/24 07:22 Discharge Ordered Problem: new sp4 Symptoms: have improved sp4 Condition: Stable sp4 Diagnosis - Left pectoral girdle pain, acute musculoskeletal pain, nonspecific chest pain sp4 Followup: sp4 - With: Private Physician - When: 7 - 10 days - Reason: Recheck today's complaints Followup: sp4 - With: Kb Nicole MD - When: 7 - 10 days - Reason: Recheck today's complaints Discharge Instructions: - Discharge Summary Sheet sp4 - Chest Wall Pain, [id number] sp4 Forms: - Patient Portal Instructions sp4 Prescriptions: - Ibuprofen 600 mg Oral Tablet - take 1 tablet ORAL route every 6 hours As needed take with food; 30 tablet; sp4 Refills: 0, Product Selection Permitted - methocarbamol 750 mg Oral tablet - take 2 tablets ORAL route every 8 hours for 10 days PRN muscle soreness; 60 sp4 tablet; Refills: 0, Product Selection Permitted Signatures: Dispatcher [employer] EDJess Mathias RN RN ha1 Shaheen Agustin MD MD sp4 Corrections: (The following items were deleted from the chart) 03:26 03:25 BASIC METABOLIC PANEL+C.LAB.BRZ ordered. EDMS EDMS 03:26 03:25 CBC+H.LAB.BRZ ordered. EDMS EDMS 03:26 03:26 HEPATIC FUNCTION+C.LAB.BRZ ordered. EDMS EDMS 03: 03:26 MAGNESIUM+C.LAB.BRZ ordered. EDMS EDMS 03: 03:26 PROBNP+C.LAB.BRZ ordered. EDMS EDMS 03: 03:26 PROTIME (+INR)+COAG.LAB.BRZ ordered. EDMS EDMS 03: 03:26 Troponin High Sensitivity+C.LAB.BRZ ordered. EDMS EDMS 03: 03:26 Chest Single View+RAD.RAD.BRZ ordered. EDMS EDMS 04:43 04:43 Angio Aorta For Dissection+CT.RAD.BRZ ordered. EDMS EDMS 04:43 04:43 Troponin High Sensitivity+C.LAB.BRZ ordered. EDMS EDMS
[2024-05-03 07:57] VITALS: TEMP 98.1; O2SAT 97
[2024-05-03 08:06] VITALS: BP 130/71
--- NOTE | 2024-05-03 12:07 | EKG ---
Test Date: 2024-05-03 Test Time: 03:17:28 Otorhinolaryngologist: KIKO MEASUREMENT RESULTS: Intervals: Rate: 87 WI: 142 QRSD: 128 QT: 388 QTc: 466 [place]: P: 55 WI: 142 QRS: 52 T: 54 INTERPRETIVE STATEMENTS: Sinus rhythm with occasional premature ventricular complexes Right bundle branch block Abnormal ECG Compared to ECG 08/30/2017 20:13:05 Ventricular premature complex(es) now present Right bundle-branch block now present Electronically Signed On 05-03-24 12:07:12 PHOTOGRAPHER MOTION PICTURE by Ronny Danielson
== END 2024-05-03 07:39 | disposition home or self-care (01) ==
LOC: ER 02:53
DX: R07.89 Other chest pain (principal); M79.18 Myalgia, other site; M54.2 Cervicalgia
CPT/HCPCS: 93005; 85025; 80048; 36415; 83735; 85610; 80076; 84484 ×2; 83880; 71275; 74175; 71045; Q9967; J7030